=== PATIENT | male | born 1980 | race Caucasian/White ===

== ENCOUNTER 2018-01-02 12:47 | Emergency (ER) | END 2018-01-02 14:40 | disposition home or self-care (01) ==

== ENCOUNTER 2018-11-05 17:56 | Emergency (ER) | payer OTHER ==
[~2018-11-05] VITALS: Ht 157.5 cm; Wt 122.8 kg
[~2018-11-05 17:56] MED LIST: DENIES MEDICATIONS; HYDR-4011 PO; TAMS-14 PO
[2018-11-05 18:22] VITALS: Ht 157.5 cm; Wt 122.8 kg
[2018-11-05] MEDS ORDERED: ONDANSETRON 4 MG INJ IV STA (19:04)
[2018-11-05] MEDS ORDERED: KETOROLAC 30 MG INJ IV STA (19:04)
[2018-11-05] MEDS ORDERED: SOD CHLORIDE 0.9% 1,000 ML IV STA (19:04)
[2018-11-05] MEDS ORDERED: SOD CHLORIDE 0.9% 1,000 ML IV ONE (20:33)
[2018-11-05] MEDS ORDERED: IBUP-1542 PO (21:56)
[2018-11-05] MEDS ORDERED: HYDR-4011 PO (21:56)
[2018-11-05] MEDS ORDERED: TAMS-14 PO (21:56)
--- NOTE | 2018-11-05 21:59 | ERD ---
ER Documentation Chief Complaint Chief Complaint RIGHT SIDED PELVIC PAIN; NO TOHER S/S XTODAY HPI 37-year-old male presents with right flank pain rating to the right groin today. He has a history of kidney stone remotely. Denies any fevers, vomiting, dysuria, hematuria. Denies any testicular pain or swelling. ROS All systems reviewed and are negative except as per history of present illness. Medications Home Meds Active Scripts Tamsulosin Hcl* (Flomax*) 0.4 Mg Cap.er.24h, 0.4 MG PO BID, #30 CAP Prov:GABRIELA MIRAMONTES MD 11/05/18 Ibuprofen* (Motrin*) 600 Mg Tab, 600 MG PO Q6, #20 TAB Prov:GABRIELA MIRAMONTES MD 11/05/18 Hydrocodone/Acetaminophen ([place] 5-325 Tablet) 1 Each Tablet, 1 TAB PO Q6H PRN for PAIN, #14 TAB Prov:GABRIELA MIRAMONTES MD 11/05/18 Tamsulosin Hcl* (Flomax*) 0.4 Mg Cap.er.24h, 0.4 MG PO BID, #30 CAP Prov:EMEKA JAMES PA-C 01/02/18 Hydrocodone/Acetaminophen ([place] 5-325 Tablet) 1 Each Tablet, 1 TAB PO Q6H PRN for PAIN, #7 TAB Prov:EMEKA JAMES PA-C 01/02/18 Reported Medications [Denies Medications] No Conflict Check 07/22/09 Allergies Allergies: Coded Allergies: No Known Allergies (Verified Allergy, Mild, 07/22/09) PMhx/Soc History of Surgery: No Anesthesia Reaction: No Hx Neurological Disorder: No Hx Respiratory Disorders: No Hx Cardiac Disorders: No Hx Psychiatric Problems: No Hx Miscellaneous Medical Probl: No Hx Alcohol Use: No Hx Substance Use: No Hx Tobacco Use: No Smoking Status: Never smoker FmHx Family History: No diabetes, No coronary disease, No other Physical Exam Vitals Vital Signs Date Temp Pulse Resp B/P (MAP) Pulse Ox O2 O2 Flow FiO2 Time Delivery Rate 11/05/18 98.7 90 19 151/74 96 18:22 (99) Physical Exam Const: No acute distress Head: Atraumatic Eyes: Normal Conjunctiva ENT: Normal External Ears, Nose and Mouth. Neck: Full range of motion. No meningismus. Resp: Clear to auscultation bilaterally Cardio: Regular rate and rhythm, no murmurs Abd: Soft, non tender, non distended. Normal bowel sounds Skin: No petechiae or rashes Back: No midline parents. Mild right flank tenderness but mostly right mid abdominal tenderness and right groin pain without significant tenderness. Testicles nontender normal size and descended bilaterally. No hernias. Ext: No cyanosis, or edema Neur: Awake and alert Psych: Normal Mood and Affect Result Diagram: 11/05/18192111/05/181921 Results 24 hrs Laboratory Tests Test 11/05/18 19:22 White Blood Count 13.5 10^3/ul Red Blood Count 5.25 10^6/ul Hemoglobin 14.6 g/dl Hematocrit 45.8 % Mean Corpuscular Volume 87.2 fl Mean Corpuscular Hemoglobin 27.8 pg Mean Corpuscular Hemoglobin Concent 31.9 g/dl Red Cell Distribution Width 13.2 % Platelet Count 337 10^3/UL Mean Platelet Volume 8.8 fl Immature Granulocytes % 0.900 % Neutrophils % 73.4 % Lymphocytes % 16.4 % Monocytes % 8.1 % Eosinophils % 0.7 % Basophils % 0.5 % Nucleated Red Blood Cells % 0.0 /100WBC Immature Granulocytes # 0.120 10^3/ul Neutrophils # 9.9 10^3/ul Lymphocytes # 2.2 10^3/ul Monocytes # 1.1 10^3/ul Eosinophils # 0.1 10^3/ul Basophils # 0.1 10^3/ul Nucleated Red Blood Cells # 0.0 10^3/ul Urine Color YELLOW Urine Clarity CLEAR Urine pH 5.0 Urine Specific [place] 1.018 Urine Ketones NEGATIVE mg/dL Urine Nitrite NEGATIVE mg/dL Urine Bilirubin NEGATIVE mg/dL Urine Urobilinogen NEGATIVE mg/dL Urine Leukocyte Esterase NEGATIVE Damien/ul Urine Microscopic RBC 73 /HPF Urine Microscopic WBC 1 /HPF Urine Hemoglobin 3+ mg/dL Urine Glucose NEGATIVE mg/dL Urine Total Protein NEGATIVE mg/dl Sodium Level 141 mmol/L Potassium Level 4.4 mmol/L Chloride Level 107 mmol/L Carbon Dioxide Level 24 mmol/L Anion Gap 10 Blood Urea Nitrogen 26 mg/dl Creatinine 1.43 mg/dl Est Glomerular Filtrat Rate mL/min 56 mL/min Glucose Level 110 mg/dl Calcium Level 9.7 mg/dl Total Bilirubin 0.5 mg/dl Direct Bilirubin 0.00 mg/dl Indirect Bilirubin 0.5 mg/dl Aspartate Amino Transf (AST/SGOT) 40 IU/L Alanine Aminotransferase (ALT/SGPT) 31 IU/L Alkaline Phosphatase 80 IU/L Total Protein 8.4 g/dl Albumin 4.6 g/dl Globulin 3.80 g/dl Albumin/Globulin Ratio 1.21 Current Medications Medications Dose Sig/John Start Time Status Last (Trade) Ordered Route PRN Stop Time Admin Dose Reason Admin Sodium 1,000 ml @ Q1H STAT 11/05/18 DC 11/05/18 Chloride 1,000 mls/hr IV 19:04 19:20 11/05/18 20:03 Ondansetron 4 mg ONCE STAT 11/05/18 DC 11/05/18 HCl (Zofran IV 19:04 19:20 Inj) 11/05/18 19:06 Ketorolac 30 mg ONCE STAT 11/05/18 DC 11/05/18 Tromethamine IV 19:04 19:20 (Toradol) 11/05/18 19:06 Sodium 1,000 ml @ Q0M ONCE 11/05/18 DC 11/05/18 Chloride 0 mls/hr IV 20:33 20:49 11/05/18 20:34 Procedures/MDM CBC shows white blood cell count of 13.5. No anemia. CMP shows mild elevation of creatinine and BUN. Urine shows hemoglobin and red blood cells. Patient was given 2 L normal saline IV, Toradol 30 mg IV, Zofran 4 mg IV. Patient had resolution of pain after observation treatment. ROCEDURE: CT abdomen and pelvis without contrast. CLINICAL INDICATION: Abdominal Pain TECHNIQUE: CT scan of the abdomen and pelvis without oral contrast was performed and is reconstructed at 2.5 mm contiguous axial intervals from the dome of the diaphragm to the inferior pubic rami.. The patient was scanned without intravenous contrast. Sagittal and coronal reformatted images were obtained from the axial source images. The calculated radiation dose measures 1588 mGy centimeters. The CTDI measures 24 mGy. Individualized dose optimization technique was used for the performance of this exam. This included 1. Automated exposure control. 2. Adjustment of the mA and / or kV according to the patient's size. 3. Use of iterative reconstructed technique. DICOM images are available. COMPARISON: CT abdomen pelvis January 02, 2018 FINDINGS: The lung bases are clear of any infiltrate or nodule. No effusion is seen. The liver is of normal size and contour with no intrahepatic ductal dilatation. There is fatty infiltration of the liver. There is a stable 1 cm nodule in the medial segment of the left lobe of the liver which likely represents focal sparing. No gallstones are visualized. No splenic, adrenal or pancreatic abnormalities present. Kidneys are of normal size and contour. No mass Is seen. There is mild right hydroureter nephrosis with a 2 mm stone in the ureterovesicular junction. There is perinephric stranding of the right kidney. Noted is a 2 mm nonobstructing left renal calculus.. No bladder mass or stone is present. Prostate and seminal vesicles appear normal. There is no aneurysm. No adenopathy is present. No bowel mass or obstruction is present. The appendix is normal. No phlegmon, ascites or pneumoperitoneum is visualized. There is an umbilical hernia containing fat. The osseous structures are intact. IMPRESSION: Mild right hydroureter nephrosis with 2 mm calculus ureterovesicular junction. 2 mm nonobstructing left renal calculus. Fatty liver. Stable 1 cm nodular density medial segment left lobe of the liver likely representing focal sparing. .Prince Elder MD, MD Date Time Electronically viewed and signed by .Prince Elder MD, on 11/05/2018 21:32 .A/ Patient presents with signs and symptoms right renal colic. He has a small which is small in size and should pass. Some mild renal insufficiency which should improve with IV fluids administered and p.o. fluids at home. He is advised to drink plenty of fluids at home. He was treated with a short course of 5-day last supply of [place], Flomax, ibuprofen, recommendations for urology for follow-up and return precautions for fevers, vomiting, new worsening symptoms. The patient was stable with no new complaints during the ER course. Clinically, there is no current evidence to suggest meningitis, sepsis, acute abdomen, pneumonia, stroke, acute coronary syndrome, pulmonary embolism, aortic dissection or any other emergent condition appearing to require further evaluation or hospitalization. Patient counseled regarding my diagnostic impression and care plan. Prior to discharge all questions answered. Pt agrees w ith treatment plan and understands strict return precautions. Pt is instructed to follow up with primary care provider within 24-48 hours. Precautionary instructions provided including instructions to return to the ER if not improving or for any worsening or changing symptoms or concerns. Disclaimer: Inadvertent spelling and grammatical errors are likely due to EHR/dictation software use and do not reflect on the overall quality of patient care. Also, please note that the electronic time recorded on this note does not necessarily reflect the actual time of the patient encounter. Departure Diagnosis: Primary Impression: Kidney stone Condition: Stable Patient Instructions: Kidney Stone W/ Colic Referrals: DOCTOR,NOT ON STAFF (PCP) Additional Instructions: Cheque otro vez con ivan doctor primario en el proximo jha or regresa para mas o nueva simptomas. Va al ivan doctor/ specialista para mas evaluacon en el proximo semana. posiblemente necesita autorizado de ivan doctor primario para specialista. Regresa para fiebre, o mas o nueva simptomas. GABRIELA MIRAMONTES MD November 05, 2018 21:59
[2018-11-05 22:17] VITALS: BP 120/63; PULSE 84; RESP 18
== END 2018-11-05 22:18 | disposition home or self-care (01) ==
LOC: FTE 17:56
DX: N20.0 Calculus of kidney (principal)
CPT/HCPCS: 36415; 74176; 80053; 81001; 85025; 96361; 96374; 96375; J1885; J2405; J7030; Z7502